=== PATIENT | female | born 1985 | race Caucasian/White ===

== ENCOUNTER 2016-11-09 08:57 | Day surgery (SDC) | payer OTHER ==
[~2016-11-09] VITALS: Ht 167.6 cm; Wt 47.9 kg
[2016-11-09 10:27] VITALS: Ht 167.6 cm; Wt 47.9 kg
[2016-11-09] MEDS ORDERED: LIDOCAINE 4% SOLUTION 50 ML BTL ONE (11:02)
[2016-11-09 11:15] VITALS: BP 95/53; PULSE 68; RESP 24
[2016-11-09] MEDS ORDERED: MIDAZOLAM 1 MG/ML 2 ML INJ ONE ×2 (12:03→12:04)
[2016-11-09] MEDS ORDERED: FENTAnyl 50 MCG/ML VIAL ONE (12:03)
[2016-11-09 12:15] VITALS: BP 101/69; PULSE 82; RESP 12
--- NOTE | 2016-11-09 14:06 | GILP ---
DATE OF PROCEDURE: 11/09/2016 PROCEDURE PERFORMED: Esophagogastroduodenoscopy with biopsy. SURGEON: Mavis Lema MD INDICATION: A 31-year-old female undergoing this procedure for persistent heartburn and epigastric pain. She was successfully treated for H. pylori, but the symptoms are persistent. The purpose is to evaluate upper GI tract and to find the severity of the GERD and rule out Palomo's. The risk of the procedure, related and unrelated complications, sedative risks, alternatives discussed and info rmed consent was obtained. DESCRIPTION OF PROCEDURE: The patient was brought to the GI lab, sedated with Versed 4 mg, fentanyl 75 mcg and anesthetic. After optimal sedation, scope was passed with much ease into the esop hagus which was grossly within normal limits. Z-line was at 40 cm. Stomach mucosa revealed gastrit is with 2 or 3 erosions. Four biopsies obtained to rule out H. pylori infection. Duodenum first an d second part including ampulla appeared normal. Retroversion done which was grossly within normal limits. Scope was straightened out and removed with good patient tolerance. IMPRESSION: 1. Gastritis. 2. Normal esophagus. 3. Normal Z-line at 40 cm. 4. Normal duodenum. PLAN: Review histopathology. In the interim, she will be treated with PPI to control her symptoms. Dictated By: MAVIS ELMA MD PJ/NTS Conf#: [id number] DID#: [id number] CC: MAVIS LEMA MD;*EndCC*
== END 2016-11-09 14:25 | disposition home or self-care (01) ==
LOC: GIL 08:57
PROVIDERS: ATTEND Internal Medicine Gastroenterology
DX: K29.30 Chronic superficial gastritis without bleeding (principal); Z80.0 Family history of malignant neoplasm of digestive organs
CPT/HCPCS: 43239; 84703; 88305; 88312; J2250; J3010; Z7610